=== PATIENT | male | born 1995 | race Caucasian/White ===

== ENCOUNTER 2024-07-08 01:09 | Emergency (ER) | payer SELFPAY ==
[~2024-07-08] VITALS: Ht 180.3 cm; Wt 74.8 kg
--- NOTE | 2024-07-08 01:52 | HMCIMG ---
ANKLE COMP 3VWS LT HISTORY: Injury COMPARISON: None TECHNIQUE: 3 images of left ankle were obtained. FINDINGS: Fracture displacement are seen involving the medial malleolus of the distal tibia with articular extension with oblique fracture involving the distal fibula. Soft tissue swelling is seen. No gross dislocation is seen. Soft tissue swelling is seen. IMPRESSION: 1. Findings as described above.
[2024-07-08] MEDS ORDERED: NAPR-1192 PO (02:10)
--- NOTE | 2024-07-08 02:12 | ERN ---
ED Note History of Present Illness Stated Complaint: LEFT ANKLE INJURY Chief Complaint: Ankle Problem Time Seen by MD: 01:11 Time Seen by Midlevel: 01:15 Dictation: 29-year-old male coming in for left ankle pain. Patient states an hour ago he was wrestling another person in felt his ankle pop. Patient denies having any medical or surgical history. No other complaints at this time. Allergies: Coded Allergies: No Known Allergies (Unverified Allergy, Unknown, 07/08/24) Past Medical History Past Medical History: No Pertinent History Surgical History: None Review of System Dictation Constitutional: Negative for fever,chills, and weight loss Eyes: Negative for injury, pain,redness, and discharge ENT: Negative for injury,pain or swelling Cardiovascular: Negative for chest pain, palpitations, and edema Respiratory: Negative for shortness of breath, cough, and wheezing, Abdomen/GI: Negative for abdominal pain, nausea, vomiting, diarrhea, and constipation Back: Negative for injury and pain : Negative for injury, bleeding and discharge MS/Extremity: Complaining of left ankle pain Skin: Negative for rash, and discoloration Neuro: Negative for headache, weakness, numbness, tingling, and seizure Psych: Negative for suicide ideation, homicidal ideation, and hallucinations Review of Systems: was completed Initial Vital Sign VS Vital Signs Date Time Temp Pulse Resp B/P (MAP) Pulse Ox O2 Delivery O2 Flow Rate FiO2 07/08/24 01:10 97.3 64 16 102/70 100 Physical Exam Dictation General: awake, alert, NAD Head/Face: Normocephalic, atraumatic Eyes: PERRL, EOMI, vision at baseline ENT: oral cavity clear, TMs clear, no signs of infection Neck: Trachea midline, supple, no nuchal rigidity Cardiovascular: RRR, normal S1/S2, No MRGs, no JVD Respiratory: CTAB, no respiratory distress, No rales or wheezes Abdomen: Soft, non-tender, non-distended, normal bowel sounds, no guarding or rebound. Skin: Warm, dry, normal turgor, no rash MS/Extremity: Pulses equal, no cyanosis, neurovascular intact, left ankle swelling, distal pulses intact, extremities warm to touch, cap refill less than 2 seconds Neuro: COAx4, GCS 15, strength 5/5, CN 2-12 intact, normal cerebellar exam, normal gait, Psych: Normal behavior, mood, and affect normal Results (Laboratory/Radiology) Labs Reviewed?: Yes X-RAY Comment: [facility] [address] [place] [address] IMAGING REPORT Signed PATIENT: MARIANA FRANKLIN MR#: [id number] : 1995 SEX: M AGE: 29 LOCATION: [facility] ORDER 3 STATUS: REG ER REPORT#: [id number] SERVICE 3 REASON: SWELLING, INJURY ORDERING PHYSICIAN: CARLTON CESPEDSE NP PROCEDURE: [id number] - ANKLE COMP 3VWS LT ANKLE COMP 3VWS LT HISTORY: Injury COMPARISON: None TECHNIQUE: 3 images of left ankle were obtained. FINDINGS: Fracture displacement are seen involving the medial malleolus of the distal tibia with articular extension with oblique fracture involving the distal fibula. Soft tissue swelling is seen. No gross dislocation is seen. Soft tissue swelling is seen. IMPRESSION: 1. Findings as described above. DICTATED BY: BERTHA RICE MD DATE: 07/08/24148 ELECTRONICALLY SIGNED BY: BERTHA RICE MD DATE: 07/08/24151 ED Course ED Course Orders Procedure Category Date Status Time Ankle Comp 3vws Lt RAD 07/08/24 Resulted 01:14 Vital Signs Date Time Temp Pulse Resp B/P (MAP) Pulse Ox O2 Delivery O2 Flow Rate FiO2 07/08/24 01:10 97.3 64 16 102/70 100 Medical Decision Making MDM MDM: 29-year-old male coming in for left ankle pain. Patient states an hour ago he was wrestling another person in felt his ankle pop. Patient denies having any medical or surgical history. No other complaints at this time. On physical exam left ankle issues swollen, distal pulse intact, cap refill less than 2 seconds per limited range of motion due to pain. Patient refusing pain medication. X-ray is showing fracture or displacement there seen involving the medial malleolus of the distal tibia with articular extension with oblique fracture involving the distal fibula and soft tissue swelling. Consulted with Bam Garzon, orthopedic, Dr. Garzon patient can be seen outpatient at a clinic. Communicated diagnosis with patient and father at bedside, patient states that he is from [place] but he has a doctor he can follow up with up there. Patient placed in a sugar-tong splint and given crutches. Educated to avoid bearing weight on the left lower extremity, elevate and apply ice to help with swelling and educated on signs and symptoms of when to return back to the emergency room. Patient verbalized understanding, answered all questions. Differential diagnosis: Ankle sprain, ankle fracture Rationale: Tests considered and ordered secondary to shared decision making include: Previous outside records reviewed: Old ER visits. Risk of complication and/or morbidity or mortality of patient management: None Medications-Per medication reconciliation Need for hospitalization: Patient does not meet criteria for hospitalization. Need for emergency major/minor surgery: No There are no social concerns with this patient. Prescription drug management Prescriptions will include symptomatic care Patient's prior external medical records from other ER visits were reviewed by me as indicated. Prior testing and results from previous visits were reviewed. Prior tests were taken into account with medical decision making and resource utilization, independent historian/historians were used to obtain complete medical history. I independently interpreted the test that were performed, results were reviewed by me and considered findings on radiology if ordered. Medical management and examination interpretation discussions were had by me with other qualified healthcare professionals as indicated for the patient's care. DX & DISP Disposition: Discharge Departure Impression: Primary Impression: Closed left ankle fracture Condition: Stable Scripts Naproxen (Naproxen) 375 Mg Tablet 375 MG PO BID for 10 Days, #20 TAB 0 Refills Prov: CARLTON CESPEDES NP 07/08/24 Additional Instructions: You can add Tylenol to the medications that I prescribed to you today. Do not take off splint, did not bear any weight on the extremity, elevate and you can apply ice to help with swelling. Please follow up with orthopedic surgeon in 1- 2 days. Return to the ER if you see any discoloration, numbness, tingling to that extremity. Referrals: EMMA GARZON MD Time of Disposition: 02:10 I have reviewed the case, and I agree with, Diagnosis and Plan CARLTON CESPEDES NP Jul 08, 2024 02:11
[2024-07-08 02:34] VITALS: BP 118/78; PULSE 66; RESP 16; TEMP 97.8; O2SAT 100
--- NOTE | 2024-07-08 02:38 | NUR ---
CALLED AND SPOKE TO [facility], DISC WILL BE PROVIDED FOR FOLLOW UP CARE DUE TO PT FROM OUT OF TOWN
== END 2024-07-08 03:01 | disposition home or self-care (01) ==
LOC: EDH 01:09
DX: S82.892A Other fracture of left lower leg, initial encounter for closed fracture (principal); W18.39XA Other fall on same level, initial encounter; Y93.89 Activity, other specified; Y92.89 Other specified places as the place of occurrence of the external cause; Y99.8 Other external cause status
CPT/HCPCS: 29515; 73610; 99283